=== PATIENT | male | born 1990 | race Caucasian/White ===

== ENCOUNTER 2020-11-26 19:41 | Emergency (ER) | payer OTHER, SELFPAY ==
--- NOTE | 2020-11-26 19:53 | ED.DENTAL ---
HPI - Dental/Oral General Chief complaint: Dental/Oral Stated complaint: tooth ache Time Seen by Provider: 11/26/20 19:53 Source: patient Mode of arrival: ambulatory Limitations: no limitations History of Present Illness HPI Narrative: 30-year-old man comes in today complaining of toothache for the past few days. Patient states that 2 weeks ago a left lower molar broke but he was not having any discomfort until recently. He denies any fever, nausea, vomiting, difficulty swallowing or difficulty breathing. He denies immunosuppression and history of diabetes. MD Complaint: tooth pain Onset (ago): day(s) (2) Duration: constant Severity: severe Relieving factors: nothing Exacerbating factors: chewing and cold Associated symptoms: ear pain Related Data Allergies Allergy/AdvReac Type Severity Reaction Status Date / Time No Known Allergies Allergy Verified 11/26/20 19:53 Review of Systems Constitutional: Constitutional: Denies chills and Denies fever(s) Eyes: Eyes: Denies change in vision and Denies photophobia ENT: Denies dysphagia, Denies nasal congestion and Denies sore throat Cardiovascular: Cardiovascular: Denies chest pain and Denies radiating jaw, neck or arm pain Gastrointestinal: Gastrointestinal: Denies nausea and Denies vomiting Musculoskeletal: Musculoskeletal: Denies arthralgias and Denies joint swelling Integumentary/Breasts: Skin/Breast: Denies pruritus, Denies erythema and Denies rash Neurologic: Denies vertigo, Denies dizziness and Denies syncope Hematologic/Lymphatic: Hematologic/Lymphatic: Denies easy bleeding and Denies easy bruising Allergic/Immunologic: Allergic/Immunologic: Denies lip swelling and Denies throat swelling [facility] Past Medical History Medical History (Updated 11/26/20 @ 20:03 by Herbert Castro MD) Anxiety Social History Social History (Updated 11/26/20 @ 20:00 by Herbert Castro MD) Smoking status: Never smoker Living arrangements: with family Gender identity (if verbalized by the patient): Male Exam Const: General: healthy appearing and alert Nutritional Appearance: obese Orientation/consciousness: patient oriented x3 Limitations: no limitations Other: [id number] acute distress. HENMT: Head: normal to inspection Ears: external ears normal, TM's normal bilaterally and EAC's normal General nose exam: Normal nares present Face and sinus: normal facial exam Mouth: Yes moist mucous membranes Throat: posterior oropharynx normal Other: Decay and tenderness at 19 without swelling, discharge or gingival erythema. no jaw or neck swelling or tenderness. Eyes: Conjunctivae: conjunctivae normal Pupils: Equal, round and reactive pupils present EOM: EOMs intact bilaterally Neck: Neck: normal visual inspection and no lymphadenopathy Other: No tenderness Resp: Effort & Inspection: normal respiratory effort and not labored Auscultation: clear to auscultation bilaterally, no rales, no rhonchi and no wheezes Cardio: Rate: regular rate Rhythm: regular rhythm Heart sounds: no murmurs Skin: General skin exam: normal color, no jaundice and no pallor Rashes: no rashes Neuro: General: patient oriented x3, moves all extremities, no focal motor deficits and CN's II-XI intact bilaterally Speech: normal speech Gait exam (Neuro): Normal gait present Extrem: General: normal to inspection and no clubbing, cyanosis or edema Psych: Appearance: grossly normal and well kempt Mental Status: mental status grossly normal Affect: normal affect Attitude: cooperative Thought content: Yes Normal thought content present Discharge Plan Discharge Clinical Impression: Toothache Patient Disposition: Home, Self-Care Condition: Stable Instructions: Antibiotic Form, Toothache (ED) Additional Instructions: Follow-up with a dentist. Prescriptions: New acetaminophen-codeine 300-30 mg tablet 1 tablet PO Q6H PRN (Reason: pain) Qty: 15 RF: 0 amoxic
[2020-11-26 19:57] VITALS: BP 148/88; PULSE 90; RESP 18; O2SAT 96
[2020-11-26 20:07] VITALS: BP 138/88; PULSE 90; RESP 18; TEMP 36.2; O2SAT 96
== END 2020-11-26 20:09 | disposition home or self-care (01) ==
PROVIDERS: Emergency Provider Emergency Medicine; PCP Internal Medicine
DX: K08.89 Other specified disorders of teeth and supporting structures (principal)
CPT/HCPCS: 99283

== ENCOUNTER 2020-12-09 10:39 | Emergency (ER) | payer OTHER, SELFPAY ==
--- NOTE | ~2020-12-09 | XR_ITS ---
EXAMINATION: XR chest 2V DATE: 12/09/2020 11:38 INDICATION: Diaphoresis. Chest tightness. Tremors. TECHNIQUE: Frontal and lateral views of the chest were obtained. COMPARISON: None. FINDINGS: A calcified right lung nodule and calcified right hilar lymph nodes are consistent with old granulomatous disease. No pleural effusion or pneumothorax. The heart size is normal. There are surg ical clips in the abdomen. IMPRESSION: 1. No acute cardiopulmonary disease. Reviewed, dictated and finalized at location A.
[2020-12-09 10:45] VITALS: BP 160/101; PULSE 74; RESP 22; TEMP 36.8; O2SAT 98
--- NOTE | 2020-12-09 10:49 | ED.GENADULT ---
HPI - General Adult General Chief complaint: Extremity Problem,Nontraumatic Stated complaint: Muscles keep locking up Time Seen by Provider: 12/09/20 10:50 Source: patient Mode of arrival: ambulatory Limitations: no limitations History of Present Illness HPI narrative: 30-year-old man comes in today complaining of having trouble breathing, stiff muscles, sweating and feeling anxious. Patient states that he has a toothache and took a pill at his friend's house yesterday (or 3 days ago) that he thought was ibuprofen. He denies taking any other medications or drugs other than his home medications which include escitalopram, famotidine, and hydroxyzine. He denies chest pain, nausea, vomiting, difficulty urinating, dry mouth, itching and rash. Onset (ago): day(s) (1) Radiation: non-radiation Severity: moderate Quality: other ( Tense, shaking) Pain Consistency: constant Relieving factors: none Exacerbating factors: none Associated symptoms: diaphoresis Treatments prior to arrival: none Related Data Home Medications Medication Instructions Recorded Confirmed escitalopram oxalate 20 mg PO DAILY 12/09/20 12/09/20 famotidine 40 mg PO DAILY 12/09/20 12/09/20 hydroxyzine HCl 50 mg PO DAILY PRN 12/09/20 12/09/20 Allergies Allergy/AdvReac Type Severity Reaction Status Date / Time No Known Allergies Allergy Verified 11/26/20 19:53 Review of Systems Constitutional: Constitutional: Denies chills and Denies fever(s) Eyes: Eyes: Denies change in vision and Denies photophobia ENT: Denies dysphagia, Denies nasal congestion and Denies sore throat Cardiovascular: Cardiovascular: Denies chest pain, Reports rapid heart rate and Denies radiating jaw, neck or arm pain Respiratory: Respiratory: Denies cough, Reports dyspnea and Denies wheezing Gastrointestinal: Gastrointestinal: Denies abdominal pain, Denies constipation, Denies diarrhea, Denies nausea and Denies vomiting Genitourinary: Genitourinary: Denies oliguria, Denies dysuria and Denies urinary frequency Musculoskeletal: Musculoskeletal: Denies back pain, Denies arthralgias and Denies joint swelling Integumentary/Breasts: Skin/Breast: Denies pruritus, Denies erythema and Denies rash Neurologic: Denies vertigo, Denies dizziness and Denies syncope Psychiatric: Psychiatric: Reports anxiety Hematologic/Lymphatic: Hematologic/Lymphatic: Denies easy bleeding and Denies easy bruising Allergic/Immunologic: Allergic/Immunologic: Denies lip swelling and Denies throat swelling [facility] Past Medical History Medical History (Updated 12/09/20 @ 13:17 by Herbert Castro MD) Anxiety GERD (gastroesophageal reflux disease) Social History Social History Smoking status: Never smoker Gender identity (if verbalized by the patient): Male Exam Const: General: healthy appearing, alert and diaphoretic Nutritional Appearance: obese Orientation/consciousness: patient oriented x3 Limitations: no limitations Other: moderate acute distress, anxious. HENMT: Head: normal to inspection Ears: external ears normal, EAC's normal and Abnormal EAC present General nose exam: Normal nares present Face and sinus: normal facial exam Mouth: Yes moist mucous membranes Throat: posterior oropharynx normal Eyes: Conjunctivae: conjunctivae normal Pupils: Equal, round and reactive pupils present EOM: EOMs intact bilaterally Neck: Neck: no lymphadenopathy Resp: Effort & Inspection: normal respiratory effort, not labored and tachypneic Auscultation: clear to auscultation bilaterally, no rales, no rhonchi and no wheezes Cardio: Rate: regular rate and tachycardic Heart sounds: no murmurs GI: GI Palp: No Tenderness to palpation present (GI) Skin: General skin exam: normal color, no jaundice and no pallor Rashes: no rashes Neuro: General: patient oriented x3, moves all extremities, no focal motor deficits and CN's II-XI intact bilater
--- NOTE | 2020-12-09 10:55 | ECG_ITS ---
Measurements Intervals [place] Rate: 119 P: 21 W[place]: 136 QRS: 68 QRSD: 82 T: 10 QT: 311 QTc: 438 Interpretive Statements SINUS TACHYCARDIA DELAYED PRECORDIAL R/S TRANSITION BORDERLINE ST-T WAVE ABNORMALITY- INFERIOR LEADS BASELINE ARTIFACT- I, II, III, AVR, AVL, AVF, V4 ABNORMAL ECG Electronically Signed On 12-09-2020 12:03:46 CDT by Frantz Vilchis D.O.
[2020-12-09 11:15] LABS: Add Urine Microscopic? NO; Appearance Urine Clear (Clear); Bilirubin Urine Negative (Negative); Blood Urine Negative (Negative); Color Urine Yellow (Yellow); Glucose Urine UA Negative (Negative); Ketones Urine Negative (Negative); Leukocyte Esterase Ur Negative (Negative); Nitrate Urine Negative (Negative); Protein Urine Negative (Negative); Specific Grav Ur 1.015 (1.010-1.020); Urobilinogen Urine 0.2 mg/dL (0.2-1.0); pH Urine 6.5 (5.0-8.0)
[2020-12-09] MEDS: LORazepam INJ (*CRX) 2 MG/ML VIAL 0.5 MG IV PUSH (11:18)
[2020-12-09 11:21] LABS: Base Excess ABG -0.8 mmol/L (0-2); Carboxyhemoglobin 3.4 % (0-1.5); HCO3 ABG 23.9 mmol/L (23-29); Methemoglobin ABG 0.1 % (0-1.5); Oxygen Content ABG 21.4 %vol (16.0-22.0); Oxygen Saturation ABG 97.8 % (95-97); Oxyhemoglobin 94.4 % (94-100); PCO2 ABG 39.7 mmHg (35-45); PO2 ABG 98.6 mmHg (80-90); Reduced Hemoglobin 2.1 % (0-1.5); Total Hemoglobin 16.1 g/dL
[2020-12-09 11:24] LABS: Amphetamine Screen Urine Negative (Negative); Barbiturate Screen Urine Negative (Negative); Benzodiazepines Screen Urine Negative (Negative); Cannabinoid Screen Urine Positive (Negative); Cocaine Screen Urine Negative (Negative); Methadone Screen Urine Negative (Negative); Opiate Screen Urine Negative (Negative); Phencyclidine Screen Urine Negative (Negative)
[2020-12-09 11:25] LABS: Basophils Percent Auto 0.9 % (0.0-1.0); Eosinophils Absolute Auto 0.15 K/mm3 (0.02-0.50); Eosinophils Percent Auto 1.3 % (1.0-6.0); Hematocrit 47.3 % (40.0-54.0); Hemoglobin 15.7 g/dL (14.0-18.0); Immature Granulocyte Absolute 0.04 K/mm3 (0.00-0.00); Immature Granulocyte Percent A 0.3 % (0.0-0.0); Lymphocytes Absolute Auto 2.86 K/mm3 (1.10-4.50); Lymphocytes Percent Auto 24.7 % (18.0-42.0); Mean Corpuscular HGB Conc 33.2 g/dL (32.0-36.0); Mean Corpuscular Hemoglobin 29.9 pg (27.0-31.0); Mean Corpuscular Volume 90.1 fL (78.0-102.0); Monocytes Absolute Auto 0.63 K/mm3 (0.10-0.90); Monocytes Percent Auto 5.4 % (2.0-11.0); Neutrophils Absolute Auto 7.8 K/mm3 (1.7-7.2); Neutrophils Percent Auto 67.4 % (50.0-70.0); Platelet Count Result 466 K/mm3 (150-420); Red Blood Count 5.25 M/mm3 (4.70-6.10); Red Cell Distribution Width 12.4 % (11.6-14.4); White Blood Count 11.6 K/mm3 (4.8-10.8)
[2020-12-09 11:26] LABS: Device ROOM AIR; Modified Allen's Test Pass; Site Drawn LEFT RADIAL
[2020-12-09 11:37] LABS: D Dimer 0.19 mg/L (0.19-0.50)
[2020-12-09 11:37] LABS: Prothrombin Time 10.3 Seconds (9.50-12.10)
[2020-12-09 11:49] LABS: Alanine Aminotransferase 46 U/L (16-63); Albumin Level 4.2 g/dL (3.4-5.0); Alkaline Phosphatase 58 U/L (46-116); Anion Gap 12 mmol/L (8-16); Aspartate Amino Transferase 20 U/L (15-37); Bilirubin,Total 0.6 mg/dL (0.00-1.00); Blood Urea Nitrogen 13 mg/dL (7-18); Calcium 9.3 mg/dL (8.5-10.1); Carbon Dioxide 27 mmol/L (21-32); Chloride 101 mmol/L (98-108); Creatine Kinase 130 U/L (39-308); Estimated Glomerular Filt Rate > 60; Glucose 133 mg/dL (70-99); Osmolality Calculated 292 mOsm/kg (285-295); Phosphorus 3.4 mg/dL (2.6-4.7); Potassium 4.3 mmol/L (3.5-5.1); Sodium 140 mmol/L (136-145); Total Protein 7.9 g/dL (6.4-8.2)
[2020-12-09 11:52] LABS: Thyroid Stimulating Hormone 2.28 uIU/mL (0.36-3.74)
[2020-12-09 11:53] LABS: Acetaminophen < 2 ug/mL (10-30); Ethanol < 3 mg/dL (0-6); Salicylate 3.4 mg/dL (2.8-20.0)
[2020-12-09 12:00] VITALS: BP 159/87; PULSE 102; O2SAT 98
[2020-12-09 13:19] VITALS: BP 152/89
== END 2020-12-09 13:20 | disposition home or self-care (01) ==
PROVIDERS: Emergency Provider Emergency Medicine; PCP Internal Medicine
DX: M79.10 Myalgia, unspecified site (principal); T50.905A Adverse effect of unspecified drugs, medicaments and biological substances, initial encounter
CPT/HCPCS: 36415; 36600; 71046; 80053; 80307; 81003; 82375; 82550; 82805; 83050; 83735; 84100; 84443; 85025; 85380; 85610; 85730; 93005; 96374; 99283; 99284; J2060

== ENCOUNTER 2020-12-09 14:21 | Observation (INO) | payer OTHER, SELFPAY ==
[2020-12-09 14:25] VITALS: BP 141/81; PULSE 130; RESP 20; TEMP 36.8; O2SAT 98
--- NOTE | 2020-12-09 14:31 | ED.SOB ---
HPI - SOB/Dyspnea General Stated Complaint: AMBULANCE Time Seen by Provider: 12/09/20 14:25 Source: patient and EMS Mode of arrival: EMS Limitations: no limitations History of Present Illness HPI Narrative: 30-year-old man with history anxiety comes in today complaining of trouble breathing, stiff muscles sweating and feeling anxious. He states his legs feel very restless. Getting up and walking around does not improve his symptoms. Patient was seen her earlier in the emergency department and improved significantly with a small amount of benzodiazepines however when he got home his symptoms return. Patient states that he has a toothache and took 5 pills at his friend's house yesterday (or 3 days ago) that he thought was ibuprofen. He denies taking any other medications or drug other than his home medications which include escitalopram, fought eating, and hydroxyzine. He denies chest pain, nausea, vomiting, difficulty urinating, dry mouth, itching and rash. He states he took his usual medicines this morning. MD elicited complaint: shortness of breath Onset (ago): minute(s) (30) Timing: constant Severity: moderate Exacerbating factors: nothing Relieving factors: nothing Associated symptoms: diaphoresis Treatment prior to arrival: none Related Data Home Medications Medication Instructions Recorded Confirmed escitalopram oxalate 20 mg PO DAILY 12/09/20 12/09/20 famotidine 40 mg PO DAILY 12/09/20 12/09/20 hydroxyzine HCl 50 mg PO DAILY PRN 12/09/20 12/09/20 Allergies Allergy/AdvReac Type Severity Reaction Status Date / Time No Known Allergies Allergy Verified 11/26/20 19:53 Review of Systems Review of Systems: All systems reviewed & are unremarkable except as noted in HPI and below Constitutional: Constitutional: Denies chills and Denies fever(s) Eyes: Eyes: Denies change in vision and Denies photophobia ENT: Denies dysphagia, Denies nasal congestion and Denies sore throat Cardiovascular: Cardiovascular: Denies chest pain and Denies radiating jaw, neck or arm pain Respiratory: Respiratory: Reports as per HPI, Denies cough and Reports dyspnea Gastrointestinal: Gastrointestinal: Denies abdominal pain, Denies nausea and Denies vomiting Genitourinary: Genitourinary: Denies oliguria and Denies dysuria Musculoskeletal: Musculoskeletal: Denies back pain, Denies arthralgias and Denies joint swelling Integumentary/Breasts: Skin/Breast: Denies pruritus, Denies erythema and Denies rash Neurologic: Denies vertigo, Denies dizziness, Denies syncope, Denies headache(s), Denies focal weakness and Denies numbness Psychiatric: Psychiatric: Reports anxiety Hematologic/Lymphatic: Hematologic/Lymphatic: Denies easy bleeding and Denies easy bruising Allergic/Immunologic: Allergic/Immunologic: Denies lip swelling and Denies throat swelling [facility] Past Medical History Medical History Anxiety GERD (gastroesophageal reflux disease) Social History Social History Smoking status: Never smoker Gender identity (if verbalized by the patient): Male Exam Const: General: alert Nutritional Appearance: obese Orientation/consciousness: patient oriented x3 Limitations: no limitations Other: Mild acute distress, anxious appearing. HENMT: Head: normal to inspection Ears: external ears normal, TM's normal bilaterally and EAC's normal General nose exam: Normal nares present Face and sinus: normal facial exam Mouth: Yes moist mucous membranes Throat: posterior oropharynx normal Eyes: Conjunctivae: conjunctivae normal Pupils: Equal, round and reactive pupils present EOM: EOMs intact bilaterally Resp: Effort & Inspection: normal respiratory effort and not labored Auscultation: clear to auscultation bilaterally, no rales, no rhonchi and no wheezes Cardio: Rate: tachycardic Rhythm: regular rhythm Heart sounds:
[2020-12-09] MEDS: SODIUM CHLORIDE 0.9% IV 1,000 ML 150 ML IV CONT (14:38)
[2020-12-09] MEDS: LORazepam INJ (*CRX) 2 MG/ML VIAL 0.5 MG IV PUSH (14:39)
--- NOTE | 2020-12-09 14:54 | PC.NURSE ---
PT BECOMES DIAPHORETIC AGAIN JUST PREVIOUS TO [facility]MIN[facility] - PT IS OFFERED FAN - STATES HE FEELS LIKE HE DID DURING HIS FIRST STAY HERE. ADMISSION ORDERS RECEIVED, AWAITING NURSE REPORT
[2020-12-09 15:11] VITALS: BP 134/90; PULSE 132; RESP 20; O2SAT 98
[2020-12-09 15:30] VITALS: BMI 55.8
[2020-12-09 16:00] VITALS: BP 142/99; PULSE 130; RESP 20; TEMP 36.7; O2SAT 98
--- NOTE | 2020-12-09 16:05 | ADMGEN ---
This patient, Josh Mcdowell, was admitted to 2nd Floor Room 204-2. Patient/family oriented to hospital policies and general routines including ID bracelet, bed and alarms, visiting hours, pain management, procedures, bathroom and other care routines, personal items, smoking policy, room service/diet, and visiting hours. Pt does not have cpap with him Information on how to activate the Rapid Response Team has been discussed. Patient/Family are encouraged to report perceived risks to care and to ask questions if they do not understand what they are told or what they should do.
[2020-12-09 16:18] VITALS: TEMP 36.8
--- NOTE | 2020-12-09 16:26 | PC.NURSE ---
pt hr is 144, c/o back spasm, physician notified, will put in order for tylenol
[2020-12-09] MEDS: ACETAMINOPHEN 500 MG TABLET 1000 MG PO (16:56)
--- NOTE | 2020-12-09 17:29 | PC.NURSE ---
pt iv will not flush , new iv started, fluids running, physician in room to see pt
[2020-12-09 18:17] LABS: Anion Gap 6 mmol/L (8-16); Blood Urea Nitrogen 14 mg/dL (7-18); Carbon Dioxide 31 mmol/L (21-32); Chloride 103 mmol/L (98-108); Estimated CRCL calculation 136 ml/min; Estimated Glomerular Filt Rate > 60; Glucose 119 mg/dL (70-99); Osmolality Calculated 291 mOsm/kg (285-295); Potassium 4.3 mmol/L (3.5-5.1); Sodium 140 mmol/L (136-145)
[2020-12-09 18:31] LABS: Creatine Kinase 199 U/L (39-308)
[2020-12-09 19:00] LABS: Alanine Aminotransferase 43 U/L (16-63); Albumin Level 3.8 g/dL (3.4-5.0); Alkaline Phosphatase 51 U/L (46-116); Aspartate Amino Transferase 17 U/L (15-37); Bilirubin,Total 0.5 mg/dL (0.00-1.00); Total Protein 7.3 g/dL (6.4-8.2)
[2020-12-09 20:00] VITALS: BP 136/82; PULSE 106; PULSE 89; RESP 20; TEMP 36.8; O2SAT 100; O2SAT 99
--- NOTE | 2020-12-09 21:17 | PC.NURSE ---
pt appears to be sleeping, no s/sx of distress or complications, hob elevated and o2 is on at 2L due to pt sleep apnea, iv running, urinal in reach
--- NOTE | 2020-12-09 22:43 | PC.NURSE ---
pt resting in bed, no reports of reaction or other symptoms, iv running, urinal in reach
--- NOTE | 2020-12-09 23:59 | PC.NURSE ---
Pt c/o back pain and requested tylenol. Dr. Castro notified of pt's c/o pain and he ordered tylenol 1000 mg PO q 6 hrs prn.
[2020-12-10] VITALS: BP 131/71; PULSE 86; RESP 20; TEMP 36.3; O2SAT 99
[2020-12-10] MEDS: ACETAMINOPHEN 500 MG TABLET 1000 MG PO (00:17)
--- NOTE | 2020-12-10 00:54 | PC.NURSE ---
Pt given tylenol 1000 mg PO to relieve c/o back pain. Pt up to the bathroom and had a moderate amount of formed stool and urine. pt back to bed per self.
--- NOTE | 2020-12-10 01:38 | PC.NURSE ---
IV fluid finished infusing; Pt states tylenol helped to relieve his back pain and rated his pain as a '2' on a 1-10 pain scale.
[2020-12-10 02:10] LABS: Basophils Absolute Auto 0.05 K/mm3 (0.00-0.10); Basophils Percent Auto 0.6 % (0.0-1.0); Eosinophils Absolute Auto 0.11 K/mm3 (0.02-0.50); Eosinophils Percent Auto 1.3 % (1.0-6.0); Hematocrit 41.7 % (40.0-54.0); Hemoglobin 13.6 g/dL (14.0-18.0); Immature Granulocyte Absolute 0.02 K/mm3 (0.00-0.00); Immature Granulocyte Percent A 0.2 % (0.0-0.0); Lymphocytes Absolute Auto 2.49 K/mm3 (1.10-4.50); Lymphocytes Percent Auto 30.3 % (18.0-42.0); Mean Corpuscular HGB Conc 32.6 g/dL (32.0-36.0); Mean Corpuscular Hemoglobin 29.5 pg (27.0-31.0); Mean Corpuscular Volume 90.5 fL (78.0-102.0); Mean Platelet Volume 9.1 fl (8.7-11.0); Monocytes Absolute Auto 0.66 K/mm3 (0.10-0.90); Neutrophils Absolute Auto 4.9 K/mm3 (1.7-7.2); Neutrophils Percent Auto 59.6 % (50.0-70.0); Platelet Count Result 376 K/mm3 (150-420); Red Blood Count 4.61 M/mm3 (4.70-6.10); Red Cell Distribution Width 12.5 % (11.6-14.4); White Blood Count 8.2 K/mm3 (4.8-10.8)
[2020-12-10 02:27] LABS: Anion Gap 7 mmol/L (8-16); Blood Urea Nitrogen 15 mg/dL (7-18); Calcium 8.8 mg/dL (8.5-10.1); Carbon Dioxide 29 mmol/L (21-32); Chloride 103 mmol/L (98-108); Creatine Kinase 310 U/L (39-308); Estimated CRCL calculation 160 ml/min; Estimated Glomerular Filt Rate > 60; Glucose 110 mg/dL (70-99); Osmolality Calculated 289 mOsm/kg (285-295); Potassium 4.1 mmol/L (3.5-5.1); Sodium 139 mmol/L (136-145); Troponin I 5.2 ng/L (0.00-60.4)
[2020-12-10 03:11] LABS: Bilirubin,Total 0.6 mg/dL (0.00-1.00)
[2020-12-10 03:12] LABS: Alanine Aminotransferase 43 U/L (16-63); Albumin Level 3.7 g/dL (3.4-5.0); Alkaline Phosphatase 48 U/L (46-116); Aspartate Amino Transferase 20 U/L (15-37); Bilirubin Direct 0.1 mg/dL (0-0.2)
[2020-12-10 04:00] VITALS: BP 136/85; PULSE 92; RESP 20; TEMP 36.1; O2SAT 98
--- NOTE | 2020-12-10 04:09 | PC.NURSE ---
Pt resting quietly in bed and doesnt voice any c/o discomfort.
[2020-12-10 07:43] VITALS: BP 126/75; PULSE 93; RESP 18; TEMP 36.6; O2SAT 98
--- NOTE | 2020-12-10 08:49 | PM.SD2 ---
Same Day Admit/Disch: HPI History of Present Illness Chief complaint: drug reaction Narrative: Josh Mcdowell is a 30 year old male Pt came to the ER for a tooth ache and was discharged. He then returned after visiting a friend who gave him approximately 5 round brown pills that he said looked like Ibuprofen. After taking these pills the Pt started becoming nervous, anxious, jittery, sweating and these symptoms lead him to return to the ER. He was admitted last night for observation for what looked like serotonin syndrome and neuro checks. Discussed with Pt why NOT to take medication that he does not know the contents. Pt states he understood and agreed. Pt denies any CP, SOB, jitteriness this AM, sweating, abdominal issues, neurologic deficits, or musculoskeletal issues. [facility] Past Medical History Medical History Anxiety GERD (gastroesophageal reflux disease) Social History Social History Smoking status: Light tobacco smoker Alcohol intake: unknown Substance use type: marijuana Last use: 12/06/2020 Gender identity (if verbalized by the patient): Male Spiritual care concerns: No Same Day Admit/Disch: Med Pre-admit Medications Home Medications Medication Instructions Recorded Confirmed Type escitalopram oxalate 20 mg PO DAILY 12/09/20 12/09/20 History famotidine 40 mg PO DAILY 12/09/20 12/09/20 History hydroxyzine HCl 50 mg PO DAILY PRN 12/09/20 12/09/20 History Exam Const: General: cooperative, comfortable, no acute distress, alert and awake Nutritional Appearance: obese morbidly obese HENMT: Head: normal to inspection, normocephalic and atraumatic Ears: hearing grossly normal bilaterally Eyes: General: appearance normal, both eyes and all related structures Eyelids: eyelids normal Conjunctivae: conjunctivae normal Sclera: sclerae normal Neck: Neck: normal visual inspection and no JVD Resp: Effort & Inspection: normal respiratory effort Auscultation: clear to auscultation bilaterally Cardio: Jugular venous distension: no JVD Rate: regular rate Heart sounds: S1 normal heart sound present and S2 normal heart sound present GI: GI Palp: Yes Soft to palpation and No Tenderness to palpation present (GI) Auscultation: normal bowel sounds Skin: General skin exam: normal color Lesions: no lesions Rashes: no rashes Neuro: General: oriented to person, oriented to place and oriented to time Cranial nerves: Yes CN's II-XII intact bilaterally Extrem: General: full ROM and no pedal edema Psych: Appearance: grossly normal Mental Status: mental status grossly normal Speech and movement: Normal speech and movement present DS: Data Data Completed and Pending Labs on day of discharge: Labs from last 24 hours 12/10/20 12/10/20 12/10/20 01:57 01:57 01:57 WBC 8.2 RBC 4.61 L Hgb 13.6 L Hct 41.7 MCV 90.5 MCH 29.5 MCHC 32.6 RDW 12.5 Plt Count 376 MPV 9.1 Immature Gran % (Auto) 0.2 H Neut % (Auto) 59.6 Lymph % (Auto) 30.3 [place] % (Auto) 8.0 Eos % (Auto) 1.3 Baso % (Auto) 0.6 Lymph # (Auto) 2.49 [place] # (Auto) 0.66 Eos # (Auto) 0.11 Baso # (Auto) 0.05 Abs Immat Gran (auto) 0.02 H Absolute Neuts (auto) 4.9 Absolute Nucleated RBC 0.00 Nucleated RBC % 0.0 Sodium 139 Potassium 4.1 Chloride 103 Carbon Dioxide 29 Anion Gap 7 L BUN 15 Creatinine 0.89 Estim Creat Clear Calc 160 Estimated GFR > 60 Glucose 110 H Calculated Osmolality 289 Calcium 8.8 Total Bilirubin 0.6 Direct Bilirubin 0.1 AST 20 ALT 43 Alkaline Phosphatase 48 Total Creatine Kinase 310 H Troponin I 5.2 Total Protein 7.0 Albumin 3.7 12/09/20 12/09/20 17:49 17:48 WBC RBC Hgb Hct MCV MCH MCHC RDW Plt Count MPV Immature Gran % (Auto) Neut % (Auto)
[2020-12-10] MEDS: FAMOTIDINE 20 MG TABLET 40 MG PO (09:18)
--- NOTE | 2020-12-10 10:23 | PC.NURSE ---
Pt discharged. Pt instructed to call [facility] dental services for emergency help with his lower left molar. Discharge instructions given to pt. Pt verbalized understanding. Pt ambulated to elevator with steady gait. Pt's ride is waiting downstairs.
--- NOTE | 2020-12-11 15:19 | PCDIET ---
Pt states he received and understood his discharge instructions. Pt also states the nurses were amazing .
== END 2020-12-10 09:50 | disposition home or self-care (01) ==
LOC: CHSED 14:39 → CHS2ND 14:49
PROVIDERS: Admitting Provider Emergency Medicine; Emergency Provider Emergency Medicine; PCP Internal Medicine; Visit Provider Emergency Medicine
DX: R06.02 Shortness of breath (principal); F41.9 Anxiety disorder, unspecified; T50.905A Adverse effect of unspecified drugs, medicaments and biological substances, initial encounter; K21.9 Gastro-esophageal reflux disease without esophagitis
CPT/HCPCS: 36415; 80048; 80053; 80076; 82550; 84484; 85025; 96360; 96361; 96374; 99285; A9270; G0378; G0379; J2060; J7030